=== PATIENT | female | born 1960 ===

== ENCOUNTER 2017-01-19 07:12 | Day surgery (SDC) | payer BC ==
[2016-05-07 21:01] VITALS: BMI 25.7
[2017-01-19] MEDS ORDERED: Lactated Ringer's 500 ML IV ONE ×2 (08:33→10:15)
[2017-01-19] MEDS ORDERED: Propofol 10 mg/ml Inj (20 ML) ONE (09:28)
[2017-01-19] MEDS ORDERED: Midazolam 2 MG/2 ML VIAL ONE (09:28)
[2017-01-19 10:54] VITALS: BP 111/62; PULSE 61; RESP 17; TEMP 97; O2SAT 100
== END 2017-01-19 10:54 | disposition home or self-care (01) ==
LOC: H.ENDO 07:12
PROVIDERS: ATTEND Internal Medicine Gastroenterology
DX: Z12.11 Encounter for screening for malignant neoplasm of colon (principal); E11.9 Type 2 diabetes mellitus without complications; E03.9 Hypothyroidism, unspecified; K57.30 Diverticulosis of large intestine without perforation or abscess without bleeding; K64.8 Other hemorrhoids
CPT/HCPCS: 45378; J2001; J2250; J2704; J7120